=== PATIENT | male | born 1975 | race Caucasian/White ===

== ENCOUNTER 2020-12-06 07:42 | Outpatient (CLI) | payer BC | END 2020-12-06 07:43 | disposition home or self-care (01) | LOC: TBSIIMAG 07:42 | PROVIDERS: ATTEND Orthopaedic Surgery | DX: M17.31 Unilateral post-traumatic osteoarthritis, right knee (principal); M25.461 Effusion, right knee ==

== ENCOUNTER 2021-01-06 08:36 | Outpatient (CLI) | payer BC ==
[2021-01-06 10:15] LABS: #Basophils 0.1 10x3/uL (0.0-0.2); #Eosinphils 0.2 10x3/uL (0.0-0.5); #Monocytes 0.8 10x3/uL (0.0-1.1); #Neutrophils 2.9 10x3/uL (1.5-8.4); %Basophils 0.7 % (0.0-2.0); %Eosinophils 3.1 % (0.0-6.0); %Lymphocytes 41.6 % (18.0-47.0); %Monocytes 11.6 % (0.0-10.0); %Neutrophils 42.9 % (40.0-75.0); Hemoglobin 15.7 g/dL (13.5-17.5); Mean Corpuscular HGB CONC 34.2 g/dL (32.0-36.0); Mean Corpuscular Hemoglobin 30.3 pg (27.0-33.0); Mean Corpuscular Volume 88.6 fl (81.2-95.1); Mean Platelet Volume 9.6 fl (7.4-10.4); Platelet Count 253 10x3/uL (150-450); RBC Distribution Width 11.9 % (11.5-14.5); Red Blood Cell (RBC) Count 5.18 10x6/uL (4.32-5.72); White Blood Cell (WBC) Count 6.8 10x3/uL (3.5-10.5)
[2021-01-06 10:30] LABS: Anion Gap 14 mmol/L (10-20); BUN (Urea Nitrogen) 12 mg/dL (8.9-20.6); Calc. Creatinine Clearance 0 mL/min (70-130); Calcium 9.5 mg/dL (7.8-10.44); Carbon Dioxide 24 mmol/L (22-29); Chloride 106 mmol/L (98-107); Glucose 105 mg/dL (70-105); Potassium 4.5 mmol/L (3.5-5.1); Sodium 139 mmol/L (136-145)
[2021-01-06 10:36] LABS: INR-International Normal Ratio 0.9; Prothrombin Time 10.2 sec (9.5-12.1)
[2021-01-06 21:59] LABS: SARS-CoV-2 PCR by NAA Not Detected (NotDetected)
== END 2021-01-06 08:37 | disposition home or self-care (01) ==
LOC: LABBT 08:36
PROVIDERS: ATTEND Orthopaedic Surgery
DX: Z01.812 Encounter for preprocedural laboratory examination (principal); M17.31 Unilateral post-traumatic osteoarthritis, right knee; Z20.822 Contact with and (suspected) exposure to COVID-19
CPT/HCPCS: 80048; 85025; 85610; 87081; U0003; U0005

== ENCOUNTER 2021-01-08 05:45 | Observation (INO) | payer BC ==
[2021-01-06 12:41] VITALS: BMI 31.4
[2021-01-08] MEDS ORDERED: Tranexamic Acid 1,000 MG/10 ML VIAL ONE ×2 (05:59→10:35)
[2021-01-08] MEDS ORDERED: Sodium Chloride 0.9% 100 ML ONE (05:59)
[2021-01-08] MEDS ORDERED: Vancomycin 1.5 GRAM/300 ML BAG 1.5 GM in Premix Bag 1 BAG IVPB SCH ×2 (06:00→19:15)
[2021-01-08] MEDS ORDERED: Fentanyl 100 MCG/2 ML VIAL ONE ×2 (06:21→10:12)
[2021-01-08] MEDS ORDERED: Midazolam HCl 2 mg/2 ml Vial ONE (06:21)
[2021-01-08] MEDS ORDERED: HYDROmorphone 2 MG/ML VIAL ONE (07:16)
[2021-01-08] MEDS ORDERED: Dexamethasone 20 MG/5 ML VIAL ONE (07:21)
[2021-01-08] MEDS ORDERED: Ondansetron PF 4 MG/2 ML Vial ONE (07:21)
[2021-01-08] MEDS ORDERED: Lidocaine 1% PF 5 ML VIAL ONE (07:21)
[2021-01-08] MEDS ORDERED: PROPOFOL 200 MG/20 ML VIAL ONE (07:21)
[2021-01-08] MEDS ORDERED: Bupivacaine HCl 0.5%/Epinephrine 1:200,000/PF 30 ml Vial ONE (07:21)
[2021-01-08] MEDS ORDERED: EPINEPHrine 1 MG/ML AMP ONE (08:06)
[2021-01-08] MEDS ORDERED: Bupivacaine 0.25% HCL 30 ML VIAL ONE (08:06)
[2021-01-08] MEDS ORDERED: Fentanyl 100 MCG/2 ML VIAL SLOW IVP PRN ×3 (08:07→10:46)
[2021-01-08] MEDS ORDERED: Zolpidem Tartrate 5 MG TAB PO PRN ×2 (08:15→10:46)
[2021-01-08] MEDS ORDERED: traMADol HCl 50 MG TAB PO PRN ×2 (08:15)
[2021-01-08] MEDS ORDERED: Promethazine HCl 25 MG/ML VIAL IM PRN ×3 (08:15→10:46)
[2021-01-08] MEDS ORDERED: Ondansetron PF 4 MG/2 ML Vial IVP PRN ×2 (08:15→10:46)
[2021-01-08] MEDS ORDERED: HYDROcodone/Acetaminophen 10/325 mg Tablet PO PRN ×3 (08:15→10:46)
[2021-01-08] MEDS ORDERED: Ropivacaine 0.2% 550 ML 550 ML NERVE BLCK SCH (08:15)
[2021-01-08] MEDS ORDERED: HYDROmorphone 2 MG/ML VIAL SLOW IVP PRN (09:35)
[2021-01-08] MEDS ORDERED: Promethazine HCl 25 MG/ML VIAL IVPB PRN (09:35)
[2021-01-08] MEDS ORDERED: Ketorolac Tromethamine 30 MG/ML VIAL IVP PRN (09:35)
[2021-01-08] MEDS ORDERED: Meperidine HCl/PF 25 MG/ML VIAL SLOW IVP PRN (09:35)
[2021-01-08] MEDS ORDERED: Ondansetron HCl/PF 4 MG/2 ML Vial IVP PRN (09:35)
[2021-01-08] MEDS ORDERED: PACU-Morphine 4MG/ML VIAL SLOW IVP PRN (09:35)
[2021-01-08] MEDS ORDERED: HYDROmorphone 0.5 MG/0.5 ML SYRINGE ONE (10:13)
[2021-01-08] MEDS ORDERED: Ketorolac Tromethamine 30 MG/ML VIAL ONE (10:42)
[2021-01-08] MEDS ORDERED: Acetaminophen 325 MG TAB PO PRN (10:46)
[2021-01-08] MEDS ORDERED: diphenhydrAMINE 25 MG CAP PO PRN (10:46)
[2021-01-08] MEDS ORDERED: Multivitamin W/ Minerals 1 TAB PO SCH (12:00)
[2021-01-08] MEDS ORDERED: Ketorolac Tromethamine 30 MG/ML VIAL IVP SCH (12:00)
[2021-01-08] MEDS ORDERED: Senokot S 8.6-50 MG TAB PO SCH (12:15)
[2021-01-08] MEDS ORDERED: Aspirin 81 mg Enteric Coated Tablet PO SCH (12:15)
[2021-01-08] MEDS ORDERED: Ferrous Gluconate 324 MG TAB PO SCH (12:15)
[2021-01-08] MEDS: Sodium Chloride 0.9% 1,000 ML IV SCH ×2 (12:37→19:22)
[2021-01-08] MEDS: HYDROcodone/Acetaminophen 10/325 mg Tablet PO PRN ×2 (13:59→21:04)
[2021-01-08] MEDS: CEFAZOLIN 2 GM, Admixture Fee 1 EACH in Sodium Chloride 0.9% 100 ML IVPB SCH ×2 (16:35→23:02)
[2021-01-08] MEDS: Ketorolac Tromethamine 30 MG/ML VIAL IVP SCH (18:37)
[2021-01-08] MEDS: Ferrous Gluconate 324 MG TAB PO SCH (19:25)
[2021-01-08] MEDS: Aspirin 81 mg Enteric Coated Tablet PO SCH (19:25)
[2021-01-08] MEDS: Senokot S 8.6-50 MG TAB PO SCH (19:25)
[2021-01-09] MEDS: Ketorolac Tromethamine 30 MG/ML VIAL IVP SCH ×2 (02:57→09:48)
[2021-01-09] MEDS: Sodium Chloride 0.9% 1,000 ML IV SCH (04:06)
[2021-01-09] MEDS: HYDROcodone/Acetaminophen 10/325 mg Tablet PO PRN ×3 (06:08→13:30)
[2021-01-09 06:27] LABS: Hemoglobin 12.8 g/dL (14.0-18.0); Mean Corpuscular HGB CONC 34.8 g/dL (32.0-36.0); Mean Corpuscular Hemoglobin 32.3 pg (27.0-31.0); Mean Corpuscular Volume 92.8 fL (78.0-98.0); Mean Platelet Volume 6.9 fL (7.4-10.4); Platelet Count 213 thou/uL (130-400); RBC Distribution Width 11.5 % (11.5-14.5); Red Blood Cell (RBC) Count 3.97 mill/uL (4.70-6.10); White Blood Cell (WBC) Count 13.3 thou/uL (4.8-10.8)
[2021-01-09] MEDS ORDERED: Multivitamin W/ Minerals 1 TAB PO SCH (09:00)
[2021-01-09] MEDS: Senokot S 8.6-50 MG TAB PO SCH (09:42)
[2021-01-09] MEDS: Aspirin 81 mg Enteric Coated Tablet PO SCH (09:42)
[2021-01-09] MEDS: Ferrous Gluconate 324 MG TAB PO SCH (09:42)
[2021-01-09 12:14] VITALS: BP 116/77; TEMP 98.3
== END 2021-01-09 17:30 | disposition home or self-care (01) ==
LOC: SDC 05:45 → SURG A 10:46 → SDC 01-09 07:56 → SURG A 01-09 07:56
PROVIDERS: ADMIT Orthopaedic Surgery; ATTEND Orthopaedic Surgery
PROC: 0SRC0J9 Replacement of Right Knee Joint with Synthetic Substitute, Cemented, Open Approach (ICD-10-PCS; principal; 2021-01-08)
PROC: 3E0T3BZ Introduction of Anesthetic Agent into Peripheral Nerves and Plexi, Percutaneous Approach (ICD-10-PCS; 2021-01-08)
DX: M17.31 Unilateral post-traumatic osteoarthritis, right knee (principal); Z98.890 Other specified postprocedural states
CPT/HCPCS: 36415; 85027; 96374; 96376; A4306; C1713; C1776; G0378; J0171; J0690; J1100; J1170; J1885; J2250; J2405; J2704; J2795; J3010; J3370; J3490; S0020